=== PATIENT | male | born 2000 | race Two or more races ===

== ENCOUNTER 2020-01-22 14:11 | Emergency (ER) | payer SELFPAY ==
[~2020-01-22] VITALS: Ht 167.6 cm; Wt 63.6 kg
[2020-01-22] MEDS ORDERED: ACETAMINOPHEN 500 MG TABLET PO ONE (15:30)
--- NOTE | 2020-01-22 16:01 | RAD ---
Single AP view of the chest. Comparison: None. Indication: Fever and shortness of breath Findings: The heart is not enlarged. There is no pneumothorax or effusion. No air space or interstitial disease. Impression: 1. No acute cardiopulmonary process. Electronically signed by: Zeus Roberson MD (01/22/2020 3:59 PM) [id number]
--- NOTE | 2020-01-22 16:18 | PHYS DOC ---
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 He denies any nausea, vomiting, diarrhea, rash, cough, shortness of breath, wheezing, numbness, tingling, or weakness. Patient denies any known exposure to COVID-19. He currently rates his body aches a 10 out of 10 on the pain scale, he denies any alleviating or exacerbating factors. Patient states he has not taken any medication prior to arrival for his fever. Review of Systems: Review of Systems: Constitutional: See HPI Eyes: Denies change in visual acuity. [] HENT: See HPI Respiratory: Denies cough or shortness of breath. [] Cardiovascular: Denies chest pain or edema. [] GI: Denies abdominal pain, nausea, vomiting, or diarrhea. [] Musculoskeletal: See HPI Integument: Denies rash. [] Neurologic: Denies headache, focal weakness or sensory changes. [] Lymphatic: Denies swollen glands. [] Psychiatric: Denies depression or anxiety. [] Heart Score: Risk Factors: Risk Factors: DM, Current or recent (<one month) smoker, HTN, HLP, family history of CAD, obesity. Risk Scores: Score 0 - 3: 2.5% MACE over next 6 weeks - Discharge Home Score 4 - 6: 20.3% MACE over next 6 weeks - Admit for Clinical Observation Score 7 - 10: 72.7% MACE over next 6 weeks - Early Invasive Strategies Current Medications: Current Medications Medications (Trade) Dose Ordered Sig/[facility] Start Time Stop Time Status Last Admin Dose Admin Acetaminophen (Tylenol) 1,000 mg 1X ONCE 01/22/20 15:30 01/22/20 15:31 DC 01/22/20 15:21 1,000 MG Allergies: Allergies: Allergies Coded Allergies Type Severity Reaction Last Updated Verified No Known Drug Allergies 01/22/20 No Physical Exam: PE: Constitutional: Well developed, well nourished, no acute distress, ill appearance HENT: Normocephalic, atraumatic, bilateral external ears normal, nose normal, mild erythema posterior drainage, 1+ tonsils bilaterally, postnasal drainage present [] Eyes: PERRLA, EOMI, conjunctiva normal, no discharge. [] Neck: Normal range of motion, no stridor. [] Cardiovascular:Heart rate regular rhythm Lungs & Thorax: Respirations even and unlabored, no retractions, no respiratory distress Skin: Flushed, hot, dry, no rash Extremities: No cyanosis, ROM intact, no edema. [] Neurologic: Alert and oriented X 3, no focal deficits noted. [] Psychologic: Affect normal, judgement normal, mood normal. [] Current Patient Data: Vital Signs: Vital Signs Date Time Temp Pulse Resp B/P (MAP) Pulse Ox O2 Delivery O2 Flow Rate FiO2 01/22/20 14:40 101.0 103 18 117/63 (81) 100 Room Air 101.0 EKG: EKG: [] Radiology/Procedures: Radiology/Procedures: PROCEDURE: CHEST AP ONLY Single AP view of the chest. Comparison: None. Indication: Fever and shortness of breath Findings: The heart is not enlarged. There is no pneumothorax or effusion. No air space or interstitial disease. Impression: 1. No acute cardiopulmonary process. [] Course & Med Decision Making: Course & Med Decision Making Pertinent Labs and Imaging studies reviewed. (See chart for details) Initially the 19-year-old male presented to the emergency department with complaints of fever, generalized body aches, congestion, headache, and a sore throat. Rapid strep testing was negative in the ER he was given a gram of Tylenol in the emergency department. His heart rate went from the low 100s to the mid 80s after this medication. I advised the patient of his likely diagnosis of COVID-19. COVID-19 swab was sent to the lab. I advised the patient to follow the quarantine instructions until he knew the results of his tests. Return to the emergency room if symptoms worsen. Will prescribe a albuterol inhaler for the patient to use if shortness of breath increases. Patient verbalized an understanding of home care, medications, follow-up, and return to ED instructions and was in agreement with the plan of care. [] Dragon Disclaimer: Dragon Disclaimer: This electronic medical record was generated, in whole or in part, using a voice recognition dictation system. Departure Departure Impression: Primary Impression: Person under investigation for COVID-19 Additional Impression: Sore throat Disposition: 01 HOME, SELF-CARE Condition: STABLE Referrals: NO PCP (PCP) Patient Instructions: Viral and Bacterial Pharyngitis, Bxtt-[id number] Additional Instructions: You have been tested for or diagnosed with COVID-19. It is an infection caused by a new type of coronavirus. COVID-19 will cause cold-like or mild flu symptoms in most. It can cause more severe symptoms like problems breathing in some. There is no treatment for COVID-19. The body will clear the infection over time. Self-care will help to ease discomfort. Steps to Take: Self-Care Rest as needed. Healthy habits may help you feel better. Steps include: Choose healthy foods including fruits and vegetables. Drink water throughout the day. Get plenty of sleep each night. If you smoke, try to quit. It may ease breathing. Avoid alcohol. Keep Others Healthy The virus can spread to others. Droplets are released every time you sneeze or cough. The droplets can get into the mouth, nose, or eyes of people near you and lead to infection. To lower the chances of spreading COVID-19 to others: Stay at home until your doctor has said it is safe to leave. If you tested positive this will mean staying isolated until both of the following are true: At least 7 days have passed since the start of illness. You are free of fever for at least 72 hours without the use of medicine. During this time: - Avoid public areas, events, or transportation. Do not return to work or [facility] until your doctor has said it is safe to do so. - Call ahead if you need to go to a medical center. Let them know you may have COVID-19. It will help them guide you where to go. They may also ask you to wear a facemask when you come to the office. - If you call for emergency medical services, let them know you may have COVID- 19. While at home: - Try to avoid close contact with others. Stay about 6 feet away. - If possible, spend most of your time in a separate room from others. - Use a face mask if you will be in close contact with others such as sharing a room or vehicle. - Have someone wipe down common surfaces in the home. Use household social scientist every day on areas like doorknobs, counters, or sinks. - Cough or sneeze into a tissue. Throw the tissue away right after use. If a tissue is not available, cough or sneeze into your elbow. - Wash your hands often. Wash them after sneezing or coughing. Use soap and water and wash for at least 20 seconds. Alcohol based hand creel cleaner can be used if soap and water is not available. - Do not prepare food for others. Avoid sharing personal items like forks, spoons, or toothbrushes. - Avoid close contact with pets while you are sick. There is no evidence of the virus passing to pets. This is a safety step until more is known about this virus. Isolation can be frustrating. Social interaction can help. Keep in touch with friends and family through phone and tech options. You can still interact with others in your home, just keep a safe distance of about 6 feet. Follow-up: Your doctors office will check in with you to see if there are any changes in your health. You may be asked to keep track of symptoms to share with them. They will also let you know when you are clear to be in public again. Problems to Look Out For: Contact your doctor if your recovery is not going as you expect. Get emergency care if you have problems such as: - Trouble breathing - Nonstop chest pain or pressure - Changes in awareness, confusion, or problems waking - Lips or face have bluish color - Worsening of symptoms If you think you have an emergency, call for emergency medical services right away. As taken from [facility] [address] [place] [address] [facility] [address] [place] [address] [facility] [address] [facility] [place] [address] [facility] [address] [place] [address] [facility] [address] [place] [address] [address] [place] [address] [facility] [place] [address] [place] [address] IM[facility] [place] [address] [place] [address] [facility] [address] [place] [address] [facility] [address] [place] [address] Scripts Albuterol Sulfate (PROAIR HFA INHALER) 8.5 Gm Hfa.aer.ad 2 PUFF IH PRN Q4-6HRS PRN for SHORTNESS OF BREATH for 21 Days, #1 INHALER 0 Refills Prov: PAMELA CASTANEDA PRETZEL COOKER 01/22/20 Justicifation of Admission Dx: Justifications for Admission: Justification of Admission Dx: N/A PAMELA CASTANEDA PRETZEL COOKER Jan 22, 2020 16:18
[2020-01-22 16:45] VITALS: BP 165/73
[2020-01-22] MEDS ORDERED: ALBU2.5V8 IH (16:51)
--- NOTE | 2020-01-24 16:49 | NUR ---
Called patient at [phone] to discuss negative COVID -19 results. Left VM for patient to return call.
== END 2020-01-22 17:13 | disposition home or self-care (01) ==
LOC: ER 14:11
DX: J02.9 Acute pharyngitis, unspecified (principal); Z20.828 Contact with and (suspected) exposure to other viral communicable diseases; R51 Headache; M79.10 Myalgia, unspecified site; J45.909 Unspecified asthma, uncomplicated
CPT/HCPCS: 71045; 87070; 87880; 99284; U0003

== ENCOUNTER 2020-12-06 19:45 | Emergency (ER) | payer SELFPAY ==
[~2020-12-06] VITALS: Ht 167.6 cm; Wt 65.8 kg
[~2020-12-06 19:45] MED LIST: ALBU2.5V8 IH
[2020-12-06 19:47] VITALS: BP 118/59
--- NOTE | 2020-12-06 20:26 | PHYS DOC ---
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 Laceration is approximately 1 inch long. No foreign body seen. Patient has full range of motion and make a full fist. Patient denies numbness or tingling, coolness to extremity, laxity of the joint or extremity. No joint deformity. Rates his pain a 4 out of 10 aching nonradiating. History of Eva 1 mutation, asthma. Patient states he had a tetanus shot in the last 5 years. Review of Systems: Review of Systems: Constitutional: Denies fever or chills. [] Eyes: Denies change in visual acuity. [] HENT: Denies nasal congestion or sore throat. [] Respiratory: Denies cough or shortness of breath. [] Cardiovascular: Denies chest pain or edema. [] GI: Denies abdominal pain, nausea, vomiting, bloody stools or diarrhea. [] : Denies dysuria. [] Musculoskeletal: Denies back pain or joint pain. + Right middle finger pain [] Integument: Denies rash. +Right middle finger laceration [] Neurologic: Denies headache, focal weakness or sensory changes. [] Endocrine: Denies polyuria or polydipsia. [] Lymphatic: Denies swollen glands. [] Psychiatric: Denies depression or anxiety. [] Heart Score: C/O Chest Pain: No Risk Factors: Risk Factors: DM, Current or recent (<one month) smoker, HTN, HLP, family history of CAD, obesity. Risk Scores: Score 0 - 3: 2.5% MACE over next 6 weeks - Discharge Home Score 4 - 6: 20.3% MACE over next 6 weeks - Admit for Clinical Observation Score 7 - 10: 72.7% MACE over next 6 weeks - Early Invasive Strategies Allergies: Allergies: Allergies Coded Allergies Type Severity Reaction Last Updated Verified No Known Drug Allergies 01/22/20 No Physical Exam: PE: Constitutional: Well developed, well nourished, no acute distress, non-toxic appearance. [] HENT: Normocephalic, atraumatic, bilateral external ears normal, oropharynx moist, no oral exudates, nose normal. [] Eyes: PERRLA, EOMI, conjunctiva normal, no discharge. [] Neck: Normal range of motion, no tenderness, supple, no stridor. [] Cardiovascular:Heart rate regular rhythm, no murmur [] Lungs & Thorax: Bilateral breath sounds clear to auscultation [] Abdomen: Bowel sounds normal, soft, no tenderness, no masses, no pulsatile masses. [] Skin: Warm, dry, no erythema, no rash. Right posterior base middle finger laceration [] Back: No tenderness, no CVA tenderness. [] Extremities: No right middle finger tenderness, no cyanosis, no clubbing, ROM intact, no edema. [] Neurologic: Alert and oriented X 3, normal motor function, normal sensory function, no focal deficits noted. [] Psychologic: Affect normal, judgement normal, mood normal. [] Current Patient Data: Vital Signs: Vital Signs Date Time Temp Pulse Resp B/P (MAP) Pulse Ox O2 Delivery O2 Flow Rate FiO2 12/06/20 19:47 98.8 72 16 118/59 (103) 96 Room Air 98.8 EKG: EKG: [] Radiology/Procedures: Radiology/Procedures: [] Course & Med Decision Making: Course & Med Decision Making Pertinent Labs and Imaging studies reviewed. (See chart for details) See HPI. Alert and oriented x4. Ambulatory with steady gait. Speaks in full clear sentences. Full range of motion of all joints. No joint deformity. No swelling. Bleeding has stopped. Radial pulse strong and present. Cap refill less than 2 seconds. Skin pink warm and dry. No foreign bodies. Aluminum splint placed with dressing. Dr Hubbard read the xray as there are no obvious acute findings or foreign bodies. Laceration repair Location: Right middle posterior base of finger at the MCP joint. Approximately 1 inch long Local anesthesia: 1% lidocaine Interrupted sutures/Internal sutures: 6 sutures Nerve/ligament/muscle damage: None Cleaning and irrigation: Chlorhexidine and saline The appropriate timeout was taken. The area was prepped and draped in the usual sterile fashion. The wound was copiously irrigated with normal saline and chlorhexidine. Patient tolerated well without complication. Dressing was applied to the area follow-up education is given to observe for signs and sy mptoms of infection, bleeding and to follow-up promptly if these occur. Patient can return in 48 hours for a wound recheck. Sutures to be removed in 7 to 10 days. [] Deyanira Disclaimer: Dragon Disclaimer: This electronic medical record was generated, in whole or in part, using a voice recognition dictation system. Departure Departure Impression: Primary Impression: Laceration Disposition: HOME / SELF CARE / HOMELESS Condition: STABLE Referrals: NO PCP (PCP) Patient Instructions: Laceration Care, Adult, Sutured Wound Care Additional Instructions: Watch for signs of infection which is swelling, drainage, weakness in the extremity, coolness of the extremity, numbness or tingling, redness. Keep clean and covered. Return in 10 days to have sutures removed. DHEERAJ CRAWFORD APRN Dec 06, 2020 20:26
[2020-12-06] MEDS ORDERED: LIDOCAINE 1% Multi-Dose 20 ML VIAL. INJ ONE (21:30)
--- NOTE | 2020-12-06 21:31 | RAD ---
XR HAND_RIGHT 3 VIEWS dated 12/06/2020 8:24 PM. History: Reason: laceration on base of middle finger / Spl. Instructions: / History: Comparison: None. Findings: There is no fracture or dislocation. The bone density is normal. No abnormal periosteal reaction is s een. Joint spaces are maintained. Soft tissue injury is seen toward the ulnar side of the third finge r proximally. There is no apparent radiopaque foreign body. Impression: 1. No acute bony abnormality evident. Electronically signed by: Cresencio Nava Jr., MD (12/06/2020 9:29 PM) [facility] [facility]
== END 2020-12-06 21:20 | disposition home or self-care (01) ==
LOC: ER 19:45
DX: S61.212A Laceration without foreign body of right middle finger without damage to nail, initial encounter (principal); J45.909 Unspecified asthma, uncomplicated; Y28.8XXA Contact with other sharp object, undetermined intent, initial encounter; Y93.89 Activity, other specified; Y92.89 Other specified places as the place of occurrence of the external cause; Y99.8 Other external cause status
CPT/HCPCS: 12001; 73130; 99283

== ENCOUNTER 2021-04-05 16:59 | Emergency (ER) | payer SELFPAY | END 2021-04-05 21:01 | disposition left against medical advice (07) | LOC: ER 16:59 | DX: Z20.822 Contact with and (suspected) exposure to COVID-19 (principal); Z53.21 Procedure and treatment not carried out due to patient leaving prior to being seen by health care provider ==